=== PATIENT | female | born 1960 | race Caucasian/White ===

== ENCOUNTER 2018-08-11 20:27 | Inpatient (IN) ==
[2018-08-11] MEDS ORDERED: Tetanus/Diphtheria Toxoid Adult Vaccine Inj 0.5 ML Vial IM ONE (22:44)
[2018-08-11] MEDS ORDERED: Ampicillin/Sulbactam Inj 3 GM in Sodium Chloride 0.9% Inj 100 ML IV.SIG ONE (22:44)
--- NOTE | 2018-08-11 22:47 | ED ---
HPI General Chief Complaint: Animal Bite Stated Complaint: Dog Bite Time Seen by Provider: 08/11/18 22:36 Source: patient Mode of arrival: ambulatory Limitations: no limitations History of Present Illness HPI narrative: Patient is a 58 year old female who was bit by a dog today. Reports that she was "loving on a friend's dog"today when all of a sudden the dog attacked her and bit her on the lip. She thinks that the dog is immunized - she will call her friend to find out. Tetanus is not up to date. Incident occurred around 9-10pm tonight. Related Data Home Medications Medication Instructions Recorded Confirmed atorvastatin 5 mg PO EVERY OTHER DAY 03/22/18 08/12/18 Previous Rx's Medication Instructions Recorded amoxicillin-pot clavulanate 1 tab PO Q12H #19 tab 03/22/18 [Augmentin] Allergies Allergy/AdvReac Type Severity Reaction Status Date / Time No Known Allergies Allergy Verified 08/11/18 22:59 Review of Systems ROS: all other systems reviewed are negative [facility] Medical History Medical History High cholesterol (Acute) Hypertension (Acute) Sciatica (Acute) Surgical History Surgical History No history of previous surgery (Acute) Social History Social History Substance History: No History of Abuse Second Hand Smoke Exposure: Yes Smoking Status: Current every day smoker Tobacco Type: Cigarettes How Often Do You Have a Drink Containing Alcohol: 4 or more times a week Immunization History Tetanus Immunization: Unsure Exam Narrative Exam Narrative: GENERAL: Mild distress SKIN: Focused skin assessment warm/dry. Patient with macerated upper lip which crosses the kendall border HEAD: Atraumatic. Normocephalic. EYES: Pupils equal and round. No scleral icterus. No injection or drainage. ENT: No nasal bleeding or discharge. Mucous membranes pink and moist. NECK: Trachea midline. No JVD. CARDIOVASCULAR: Regular rate and rhythm. No murmur appreciated. RESPIRATORY: No accessory muscle use. Clear to auscultation. Breath sounds equal bilaterally. GASTROINTESTINAL: Abdomen soft, non-tender, nondistended. Hepatic and splenic margins not palpable. MUSCULOSKELETAL: No obvious deformities. No clubbing. No cyanosis. No edema. NEUROLOGICAL: Awake and alert. No obvious cranial nerve deficits. Motor grossly within normal limits. Normal speech. PSYCHIATRIC: Appropriate mood and affect; insight and judgment normal. Course Initial Documented Vital Signs Temperature 98 F 08/11/18 20:36 Pulse Rate 116 H 08/11/18 20:36 Respiratory Rate 20 08/11/18 20:36 Blood Pressure 193/120 H 08/11/18 20:36 Pulse Oximetry 97 08/11/18 20:36 Last Documented Vital Signs Temperature 98 F 08/11/18 20:36 Pulse Rate 89 08/12/18 00:38 Respiratory Rate 16 08/12/18 01:23 Blood Pressure 125/90 08/12/18 00:38 Pulse Oximetry 98 08/12/18 01:23 Medical Decision Making MDM Narrative Medical decision making narrative: Patient with bite to the upper lip which occurred around 9- 10 PM tonight. Patient will find out if this dog is immunized as it belongs to her friend. Will update patient's tetanus as well as give her a dose of Unasyn. Patient was discharged home with a prescription for Augmentin. Patient's upper lip is macerated, it does cross the vermilion border, will call plastic surgery for repair of her macerated lip. Patient was evaluated/reassessed by myself via the RMA process Patient is resting comfortably in bed and is getting a dose of Unasyn was consulted on the patient. Dr. Lopez wanted pictures of the laceration. Sent pictures to 's cell phone. states that this will need surgical revision in the OR. Stated to start patient on Unasyn and cover the area with Xeroform/bacitracin. Patient will be admitted to medicine for surgery first thing in the morning. Patient is to be n.p.o. Patient was admitted to Medical Screen Exam Complete: Yes Emergency Medical Condition: Yes Differential Diagnosis Differential Diagnosis: dog bite, facial laceration Lab Data Result diagrams: 08/12/18 00:00 08/12/18 00:00 Lab Results 08/12/18 08/12/18 Range/Units 00:00 00:00 WBC 7.6 (4.0-11.0) th/mm3 RBC 4.43 (4.00-5.30) mil/mm3 Hgb 14.1 (11.6-15.3) gm/dL Hct 41.8 (35.0-46.0) % MCV 94.3 (80.0-100.0) fL MCH 31.8 (27.0-34.0) pg MCHC 33.8 (32.0-36.0) % RDW 14.3 (11.6-17.2) % Plt Count 255 (150-450) th/mm3 MPV 8.4 (7.0-11.0) fL Neut % (Auto) 64.4 (16.0-70.0) % Lymph % (Auto) 28.3 (9.0-44.0) % [place] % (Auto) 5.7 (0.0-8.0) % Eos % (Auto) 0.7 (0.0-4.0) % Baso % (Auto) 0.9 (0.0-2.0) % Neut # (Auto) 4.9 (1.8-7.7) th/mm3 Lymph # (Auto) 2.1 (1.0-4.8) th/mm3 [place] # (Auto) 0.4 (0.0-0.9) th/mm3 Eos # (Auto) 0.1 (0.0-0.4) th/mm3 Baso # (Auto) 0.1 (0.0-0.2) th/mm3 WBC Differential . Differential Comment Auto diff final Sodium 148 H (136-145) meq/L Potassium 3.2 L (3.5-5.1) meq/L Chloride 113 H (98-107) meq/L Carbon Dioxide 24.6 (21.0-32.0) meq/L Anion Gap 10 (5-15) meq/L BUN 12 (7-18) mg/dL Creatinine 0.60 (0.50-1.00) mg/dL Estimated GFR Greater than 89 (>89) mL/min Random Glucose 83 (74-106) mg/dL Calcium 8.1 L (8.5-10.1) mg/dL Total Bilirubin 0.3 (0.2-1.0) mg/dL AST 25 (15-37) U/L ALT 22 (10-53) U/L Alkaline Phosphatase 61 (45-117) U/L Total Protein 7.4 (6.4-8.2) g/dL Albumin 4.0 (3.4-5.0) g/dL Discharge Plan Discharge Disposition Patient Disposition: ED Admit(ED Internal Use Only) Discharge Condition Condition: Stable Discharge Order Discharge Orders: ED Use Only Admit Order (Routine); Ordered 08/12/18 Ordered By: Abimbola Poole Discharge Details Diagnosis: Complicated laceration of lip Physicians Team ED Provider: Coleen Urbano ED Midlevel Provider: Abimbola Poole Primary Care Provider: UNKNOWN, Attending Provider: Edenilson De Oliveira Other Providers: Alfonso Coleman Status ED Status: Admitted Patient
[2018-08-11] MEDS ORDERED: Morphine Inj 4 MG/ML Vial IV.PUSH ONE (22:49)
[2018-08-11] MEDS ORDERED: Sod Chloride 0.9% Inj 1,000 ML IV.SIG SCH (23:00)
[2018-08-12 00:11] LABS: Baso # (Auto) 0.1 th/mm3 (0.0-0.2); Baso % (Auto) 0.9 % (0.0-2.0); Eos # (Auto) 0.1 th/mm3 (0.0-0.4); Eos % (Auto) 0.7 % (0.0-4.0); Hematocrit 41.8 % (35.0-46.0); Hemoglobin 14.1 gm/dL (11.6-15.3); Lymph # (Auto) 2.1 th/mm3 (1.0-4.8); Lymph % (Auto) 28.3 % (9.0-44.0); Mean Corpuscular HGB Conc 33.8 % (32.0-36.0); Mean Corpuscular Hemoglobin 31.8 pg (27.0-34.0); Mean Corpuscular Volume 94.3 fL (80.0-100.0); Mean Platelet Volume 8.4 fL (7.0-11.0); Mono # (Auto) 0.4 th/mm3 (0.0-0.9); Mono % (Auto) 5.7 % (0.0-8.0); Neut # (Auto) 4.9 th/mm3 (1.8-7.7); Neut % (Auto) 64.4 % (16.0-70.0); Platelet Count 255 th/mm3 (150-450); Red Blood Count 4.43 mil/mm3 (4.00-5.30); Red Cell Distribution Width 14.3 % (11.6-17.2); White Blood Count 7.6 th/mm3 (4.0-11.0)
[2018-08-12 00:46] LABS: Alanine Aminotransferase 22 U/L (10-53); Anion Gap 10 meq/L (5-15); Aspartate Aminotransferase 25 U/L (15-37); Blood Urea Nitrogen 12 mg/dL (7-18); Calcium 8.1 mg/dL (8.5-10.1); Carbon Dioxide 24.6 meq/L (21.0-32.0); Chloride 113 meq/L (98-107); Glomerular Filtration Rate Greater Than 89 mL/min (>89); Glucose,Random 83 mg/dL (74-106); Potassium 3.2 meq/L (3.5-5.1); Sodium 148 meq/L (136-145)
[2018-08-12 00:48] LABS: Alkaline Phosphatase 61 U/L (45-117); Total Protein 7.4 g/dL (6.4-8.2)
[2018-08-12] MEDS ORDERED: Sodium Chloride 0.9% 2 ML Flush PRN IV.FLUSH (01:33)
[2018-08-12] MEDS ORDERED: Acetaminophen 325 MG Tablet PO PRN (01:33)
[2018-08-12] MEDS ORDERED: Chlorhexidine Gluconate 2% 1 Pack (2 Cloths) TOPICAL ONE (02:15)
[2018-08-12] MEDS ORDERED: Sodium Chlor 0.9% Inj 500 ML IV.CONT ONE (02:15)
[2018-08-12] MEDS ORDERED: Morphine Inj 4 MG/ML Vial IV.PUSH PRN (03:25)
[2018-08-12] MEDS ORDERED: Sod Chloride 0.9% Inj 1,000 ML IV.CONT SCH (09:38)
--- NOTE | 2018-08-12 09:44 | P.HPIM ---
History of Present Illness Primary Care Physician: Dr. Quentin Giraldo History of Present Illness: Mrs. Lee is a pleasant 58 y/o female with hyperlipidemia and depression/ anxiety who presented to the ED at [facility] on 08/12/18 after being bitten by a friends dog. She reports that yesterday evening, she was at a neighbors house last night and had had a few drinks when she was "loving on a friend's dog," when all of a sudden the dog attacked her and bit her on the lip. She believes that the dog is up to date on its immunizations. Pt was seen in the ER and her laceration on her upper lip was noted to cross the kendall border. She was given Unasyn in the ED. Plastic Surgery was consulted by the ED due to the pts sustained injury and they are recommending surgical intervention today. Pt is very anxious and upset at the time of my examination as she is concerned about any scarring on her face related to this injury. She stopped her Prozac 3 days ago. She had weaned off of it. She is not otherwise taking any medications at home. She has been prescribed cholesterol medications in the past but does not take them due to the muscle cramps she gets while on those medications. She does drink alcohol daily, 2-3 vodka drinks in the evening. Pt quit smoking in but smoked about 1-1.5ppd x 30+ years. 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 This includes certification that hospital inpatient services are reasonable and necessary and in the case of services not specified as inpatient-only under 42 CFR 419.22(n), that they are appropriately provided as inpatient services in accordance to with the 2-midnight benchmark under 43 CFR 412.3(e) Estimated Total Length of Stay (Days): 2 Plans for Post Hospital Care: Home Medications and Allergies Allergies Allergy/AdvReac Type Severity Reaction Status Date / Time No Known Allergies Allergy Verified 08/11/18 22:59 Home Medications Medication Instructions Recorded Confirmed Type atorvastatin 5 mg PO EVERY OTHER DAY 03/22/18 08/12/18 History Active Medications: Active Medications Acetaminophen (Tylenol) 650 mg PO Q4H PRN PRN Reason: PAIN 1-10 Ampicillin Sodium/Sulbactam Sodium 1,500 mg/ Sodium Chloride 100 mls @ 200 mls/ hr IV.SIG Q12H JOHNNY Lactated Ringer's (Lr 1000 Ml Inj) 1,000 mls @ 30 mls/hr IV.CONT .Q24H ONE Stop: 08/13/18 02:14 Sodium Chloride (Ns Inj) 500 mls @ 30 mls/hr IV.CONT .[id number] ONE Stop: 08/12/18 18:54 Sodium Chloride (Ns Inj) 1,000 mls @ 84 mls/hr IV.CONT .[id number] JOHNNY Morphine Sulfate (Morphine Inj) 4 mg IV.PUSH Q6H PRN PRN Reason: PAIN 5-10 Ondansetron HCl (Zofran Inj) 4 mg IV.PUSH Q6H PRN PRN Reason: NAUSEA Sodium Chloride (Ns Flush) 2 ml IV.FLUSH BID JOHNNY Sodium Chloride (Ns Flush) 2 ml IV.FLUSH PRN PRN PRN Reason: FLUSH AFTER USING IV ACCESS Physical Exam Vital signs: Last Vital Signs Temp 97.9 F 08/12/18 08:35 Pulse 87 08/12/18 08:35 Resp 16 08/12/18 08:35 BP 168/95 H 08/12/18 08:35 Pulse Ox 98 08/12/18 08:35 Narrative: GENERAL: NAD, AAOx3 SKIN: Warm and dry. HEENT: Atraumatic. Normocephalic. Pupils equal and round. No scleral icterus. No injection or drainage. No nasal bleeding or discharge. Upper lip is bandaged. NECK: Trachea midline. No JVD. CARDIO: Regular rate and rhythm. RESP: No accessory muscle use. Clear to auscultation. Breath sounds equal bilaterally. ABD: +BS, soft, non-tender, nondistended. Hepatic and splenic margins not palpable. EXT: Extremities without clubbing, cyanosis, or edema. No obvious deformities. NEURO: Awake and alert. No obvious cranial nerve deficits. Motor grossly within normal limits. Five out of 5 muscle strength in the arms and legs. Normal speech. PSYCH: Pt appears very anxious Results Labs CBC & Chem 7: 08/12/18 00:00 08/12/18 00:00 Caprini VTE Risk Assessment Caprini VTE Risk Assessment: No/Low Risk (score <= 1) Caprini Risk Assessment Model: Point Value = 1 Point Value = 2 Point Value = 3 Point Value = 5 Age 41-60 Minor surgery BMI > 25 kg/m2 Swollen legs Varicose veins or History of unexplained or recurrent spontaneous Oral contraceptives or hormone replacement Sepsis (< 1 month) Serious lung disease, including pneumonia (< 1 month) Abnormal pulmonary function Acute myocardial infarction Congestive heart failure (< 1 month) History of inflammatory bowel disease Medical patient at bed rest Age 61-74 Arthroscopic surgery Major open surgery (> 45 min) Laparoscopic surgery (> 45 min) Malignancy Confined to bed (> 72 hours) Immobilizing plaster cast Central venous access Age >= 75 History of VTE Family history of VTE Factor V Leiden Prothrombin [id number] Lupus anticoagulant Anticardiolipin antibodies Elevated serum homocysteine Heparin-induced thrombocytopenia Other congenital or acquired thrombophilia Stroke (< 1 month) Elective arthroplasty Hip, pelvis, or leg fracture Acute spinal cord injury (< 1 month) Prophylaxis Regimen: Total Risk Factor Score Risk Level Prophylaxis Regimen 0-1 Low Early ambulation 2 Moderate Order ONE of the following: *Sequential Compression Device (SCD) *Heparin 5000 units SQ BID 3-4 Higher Order ONE of the following medications: *Heparin 5000 units SQ TID *Enoxaparin/Lovenox 40 mg SQ daily (WT < 150 kg, CrCl > 30 mL/min) *Enoxaparin/Lovenox 30 mg SQ daily (WT < 150 kg, CrCl > 10-29 mL/min) *Enoxaparin/Lovenox 30 mg SQ BID (WT < 150 kg, CrCl > 30 mL/min) AND/OR *Sequential Compression Device (SCD) 5 or more Highest Order ONE of the following medications: *Heparin 5000 units SQ TID (Preferred with Epidurals) *Enoxaparin/Lovenox 40 mg SQ daily (WT < 150 kg, CrCl > 30 mL/min) *Enoxaparin/Lovenox 30 mg SQ daily (WT < 150 kg, CrCl > 10-29 mL/min) *Enoxaparin/Lovenox 30 mg SQ BID (WT < 150 kg, CrCl > 30 mL/min) AND *Sequential Compression Device (SCD) Assessment and Plan Assessment (1) Complicated laceration of lip: Code(s): S01.511A - Laceration without foreign body of lip, initial encounter Status: Acute (2) Anxiety: Code(s): F41.9 - Anxiety disorder, unspecified Status: Chronic (3) Hyperlipidemia: Code(s): E78.5 - Hyperlipidemia, unspecified Status: Chronic (4) Alcohol use: Code(s): Z78.9 - Other specified health status Status: Chronic Plan Complicated lip laceration - Pt is a 58 y/o female with hyperlipidemia and depression/anxiety who presented to the ED at [facility] on 08/12/18 after being bitten by a friends dog. She reports that yesterday evening, she was at a neighbors house last night and had had a few drinks when she was "loving on a friend's dog," when all of a sudden the dog attacked her and bit her on the lip. - Pt was seen in the ER and her laceration on her upper lip was noted to cross the kendall border. - She was given Unasyn in the ED and this was continued. - Plastic Surgery was consulted by the ED due to the pts complicated lip laceration and they are recommending surgical intervention later today. - IVF while NPO - Pain control PRN - Tylenol PRN - Supportive Care - Further recommendations as the case develops Anxiety/Depression - Pt is very anxious - She reportedly weaned off and stopped her Prozac 3 days ago. - Ativan PRN Alcohol abuse - CIWA protocol - Discussed alcohol cessation with the pt and she is agreeable. - She does not feel she needs any help with this in regards to mental health counseling or AA but I did inform her of the programs that [facility] offers. Hyperlipidemia - She has been prescribed cholesterol medications in the past but does not take them due to the muscle cramps she gets while on those medications. - Followup with PCP regarding further management of this. Attending Attestation Patient examined. Assessment and plan formulated with Coleen Barraza PA-C. I agree with the above. upper lip lac secondary to dogbite bandaged. going to OR today with plastics for repair CIWA protocol for etoh overuse. _ (1) Complicated laceration of lip Qualifiers: Encounter type: initial encounter Qualified Code(s): S01.511A - Laceration without foreign body of lip, initial encounter
[2018-08-12] MEDS ORDERED: Haloperidol Inj 5 MG/ML Ampul IV.PUSH PRN (10:51)
[2018-08-12] MEDS ORDERED: LORazepam 1 MG Tablet PO PRN (10:51)
[2018-08-12] MEDS ORDERED: Potassium Chloride 10 MEQ ER Capsule PO SCH (11:00)
[2018-08-12] MEDS: Sodium Chloride 0.9% 2 ML Flush BID IV.FLUSH SCH ×2 (11:22→22:57)
[2018-08-12] MEDS: LORazepam 0.5 MG Tablet PO PRN ×2 (11:25→22:18)
[2018-08-12] MEDS: Ampicillin/Sulbactam Inj 1,500 MG IV.SIG SCH ×4 (11:30→22:20)
[2018-08-12] MEDS ORDERED: Lidocaine PF 1% Inj 5 ML Syringe OTHER ONE (13:35)
[2018-08-12] MEDS ORDERED: Glycopyrrolate Inj 1 MG/5 ML Syringe IV.PUSH ONE (13:35)
[2018-08-12] MEDS ORDERED: Neostigmine Inj 5 MG/5 ML Syringe IV.PUSH ONE (13:35)
[2018-08-12] MEDS ORDERED: Phenylephrine/NS 1000 MCG/10ML Syringe IV.PUSH ONE (13:35)
[2018-08-12] MEDS ORDERED: Bupivacaine/Epinephrine Inj 0.25% 50 ML Vial ONE (13:54)
[2018-08-12] MEDS ORDERED: Methylene Blue Inj 100 MG/10 ML Vial OTHER ONE (14:46)
[2018-08-12] MEDS ORDERED: fentaNYL Citrate Inj 100 MCG/2 ML Ampul ONE ×2 (15:24)
[2018-08-13 05:11] VITALS: BP 128/68; O2SAT 97
[2018-08-13] MEDS: Sodium Chloride 0.9% 2 ML Flush BID IV.FLUSH SCH (09:00)
[2018-08-13 10:37] VITALS: PULSE 85; RESP 16; TEMP 98
[2018-08-13] MEDS: Ampicillin/Sulbactam Inj 1,500 MG IV.SIG SCH ×2 (11:56)
--- NOTE | 2018-08-13 12:37 | P.PNIM ---
Subjective Interval history: Pt underwent surgical repair with Dr. Small on 08/12/18 Pt doing well post-op Tolerating oral intake Anxious for discharge Physical Exam Vital signs: Last Vital Signs Temp 98 F 08/13/18 08:00 Pulse 85 08/13/18 08:00 Resp 16 08/13/18 08:00 BP 128/68 08/13/18 03:30 Pulse Ox 97 08/13/18 03:30 Narrative: GENERAL: NAD, AAOx3 HEENT: Upper lip is bandaged. CARDIO: Regular rate and rhythm. RESP: No accessory muscle use. Clear to auscultation. Breath sounds equal bilaterally. ABD: +BS, soft, non-tender, nondistended. Hepatic and splenic margins not palpable. EXT: Extremities without clubbing, cyanosis, or edema. No obvious deformities. Results Labs CBC & Chem 7: 08/12/18 00:00 08/12/18 00:00 Assessment and Plan Assessment (1) Complicated laceration of lip: Code(s): S01.511A - Laceration without foreign body of lip, initial encounter Status: Acute (2) Anxiety: Code(s): F41.9 - Anxiety disorder, unspecified Status: Chronic (3) Hyperlipidemia: Code(s): E78.5 - Hyperlipidemia, unspecified Status: Chronic (4) Alcohol use: Code(s): Z78.9 - Other specified health status Status: Chronic Plan Complicated lip laceration - Pt is a 58 y/o female with hyperlipidemia and depression/anxiety who presented to the ED at [facility] on 08/12/18 after being bitten by a friends dog. She reports that yesterday evening, she was at a neighbors house last night and had had a few drinks when she was "loving on a friend's dog," when all of a sudden the dog attacked her and bit her on the lip. - Pt was seen in the ER and her laceration on her upper lip was noted to cross the kendall border. - She was given Unasyn in the ED and this was continued. - Plastic Surgery was consulted and pt underwent surgical intervention on - Follow up with Dr Lozano on Tuesday08/15/18 as instructed, - Per surgical request pt is to keep dressing to upper lip in place till seen in the office on [place] - Pt was prescribed Augmentin BID x 7 days and [place] PRN by surgeon for discharge. Anxiety/Depression - She reportedly weaned off and stopped her Prozac 3 days ago. Alcohol abuse - Discussed alcohol cessation with the pt and she is agreeable. - She does not feel she needs any help with this in regards to mental health counseling or AA but I did inform her of the programs that [facility] offers. Hyperlipidemia - She has been prescribed cholesterol medications in the past but does not take them due to the muscle cramps she gets while on those medications. - Followup with PCP regarding further management of this. Attending Attestation Patient examined. Assessment and plan formulated with Coleen Barraza PA-C. I agree with the above. _ (1) Complicated laceration of lip Qualifiers: Encounter type: initial encounter Qualified Code(s): S01.511A - Laceration without foreign body of lip, initial encounter
--- NOTE | 2018-08-13 17:57 | P.CON ---
History of Present Illness Service: Plastic surgery Consult date: 08/12/18 Reason for Consult: Dog bite injury to superior lip Primary Care Provider: UNKNOWN Chief Complaint: Dog bite injury to superior lip History of Present Illness: 58-year-old female who presented to the emergency department following dog bite to her superior lip. Patient reports that following a few drinks, she attempted to "give kisses to her friend's dog" when the dog bit her on the superior lip. She denies abnormal behavior of the dog otherwise. She believes the dog is up-to-date on its immunizations. Patient given Unasyn in the emergency department. Patient endorses severe sharp pain to the upper lip. She endorses some decreased sensation to the upper lip as well. Patient attempted to dress the wound with dry gauze as it was bleeding profusely at the time of injury. Except as noted in the HPI review of systems negative to presenting complaint No known drug allergies Family history noncontributory to presenting complaint Medication list reviewed Past medical/past surgical history Hyperlipidemia Anxiety/Depression Hx of tobacco use Daily alcohol use Chronic back pain Arthritis Bilateral breast augmentation Carpal tunnel release, right wrist Cataract surgery Tubal ligation Social history Over [id number] history of tobacco, the patient reports she quit 4 months ago Positive alcohol use Denies drug use PMFSH - History History Provided By: Patient - Medical History Medical History: Medical History (Last Reviewed 08/12/18 @ 05:29 by Aibmbola Poole) High cholesterol Hypertension Sciatica - Surgical History Surgical History: Surgical History (Last Reviewed 08/12/18 @ 05:29 by Abimbola Poole) No history of previous surgery - Tobacco History Second Hand Smoke Exposure: Yes Tobacco Use In Past 30 Days: Yes Smoking Status: Current every day smoker Tobacco Type: Cigarettes - Alcohol History How Often Do You Have a Drink Containing Alcohol: 4 or more times a week - Substance Use History Substance History: No History of Abuse - Immunization History Tetanus Immunization: Unsure Medications and Allergies Allergies Allergy/AdvReac Type Severity Reaction Status Date / Time No Known Allergies Allergy Verified 08/11/18 22:59 Home Medications Medication Instructions Recorded Confirmed Type atorvastatin 5 mg PO EVERY OTHER DAY 03/22/18 08/12/18 History Physical Exam Vital signs: Vital Signs 08/12/18 19:58 08/13/18 00:07 08/13/18 03:30 Temperature 97.7 F 97.8 F 97.9 F Pulse Rate 87 80 76 Respiratory Rate 19 18 17 Blood Pressure 141/85 H 138/79 128/68 Pulse Oximetry 96 96 97 08/13/18 08:00 Temperature 98 F Pulse Rate 85 Respiratory Rate 16 Blood Pressure Pulse Oximetry Intake & Output 08/12/18 08/13/18 08/13/18 18:59 06:59 18:59 Intake Total 1100 / 1100 100 / 100 100 / 100 Output Total Balance 1095 / 1095 100 / 100 100 / 100 Weight 55.4 kg Intake: IV 100 / 100 100 / 100 100 / 100 Unasyn Inj 1,500 MG In NS Inj 100 / 100 100 / 100 100 / 100 100 ML @ 200 mls/hr IV.SIG Q12H JOHNNY Rx#:[id number] Anesthesia Amount 1000 / 1000 Output: Estimated Blood Loss Other: # Voids 1 3 1 Date of Last Bowel Movement 08/11/18 08/11/18 08/11/18 # Bowel Movements 1 Narrative: No apparent anxiety Moist mucous membranes PERRLA Skin without rash Respirations nonlabored Moves all 4 extremities to command Digits warm well perfused Superior lip with complicated stellate laceration involving the right philtral column, cupids bow, with segmental tissue loss of both inferior right philtral column/cutaneous lip as well as 1.5 cm of vermilion just lateral to cupids josias Wound extends down to and includes orbicularis camilo Lacerations total 4.5 cm Results - Labs CBC & Chem 7: 08/12/18 00:00 08/12/18 00:00 Assessment and Plan - Assessment (1) Complicated laceration of lip Code(s): S01.511A - Laceration without foreign body of lip, initial encounter Status: Acute - Plan 58-year-old female with dog bite injury to right superior lip Risk benefits alternative treatments discussed All questions answered and the patient expressed understanding Patient elected to assume the risks of repair of the above laceration Informed consent obtained (1) Complicated laceration of lip Qualifiers: Encounter type: initial encounter Qualified Code(s): S01.511A - Laceration without foreign body of lip, initial encounter
--- NOTE | 2018-08-13 17:58 | P.PN ---
Subjective Interval history: Patient denies significant pain. She has no new complaints. Dressing is in place. Physical Exam Vital signs: Vital Signs 08/12/18 19:58 08/13/18 00:07 08/13/18 03:30 Temperature 97.7 F 97.8 F 97.9 F Pulse Rate 87 80 76 Respiratory Rate 19 18 17 Blood Pressure 141/85 H 138/79 128/68 Pulse Oximetry 96 96 97 08/13/18 08:00 Temperature 98 F Pulse Rate 85 Respiratory Rate 16 Blood Pressure Pulse Oximetry Intake & Output 08/12/18 08/13/18 08/13/18 18:59 06:59 18:59 Intake Total 1100 / 1100 100 / 100 100 / 100 Output Total 5 / 5 Balance 1095 / 1095 100 / 100 100 / 100 Weight 55.4 kg Intake: IV 100 / 100 100 / 100 100 / 100 Unasyn Inj 1,500 MG In NS Inj 100 / 100 100 / 100 100 / 100 100 ML @ 200 mls/hr IV.SIG Q12H JOHNNY Rx#:[id number] Anesthesia Amount 1000 / 1000 Output: Estimated Blood Loss 5 / 5 Other: # Voids 1 3 1 Date of Last Bowel Movement 08/11/18 08/11/18 08/11/18 # Bowel Movements 1 Narrative: Right superior lip dressing removed All incisions well apposed All edges appear viable No signs of infection Results - Labs CBC & Chem 7: 08/12/18 00:00 08/12/18 00:00 Assessment and Plan - Assessment (1) Complicated laceration of lip Code(s): S01.511A - Laceration without foreign body of lip, initial encounter Status: Acute - Plan 58-year-old female status post 08/12/2018 repair of dog bite injury to right superior lip Doing well Consider discharge with instructions to apply mupirocin ointment/Xeroform gauze/ dry gauze to incisions 3 times daily Patient should return to my clinic this week, call for appointment Please also discharged on Augmentin (1) Complicated laceration of lip Qualifiers: Encounter type: initial encounter Qualified Code(s): S01.511A - Laceration without foreign body of lip, initial encounter
--- NOTE | 2018-08-13 18:08 | P.OP ---
- Preoperative Diagnosis (1) Complicated laceration of lip (2) Dog bite - Postoperative Diagnosis (1) Dog bite (2) Complicated laceration of lip Date of procedure: 08/12/18 Procedure: Adjacent tissue rearrangement of right superior lip wound due to dog bite (02159 ) Anesthesia: GETA Surgeon: Alfonso Coleman MD Operation and Findings: 58-year-old female who presented status post dog bite injury to right superior lip, requesting closure. Risk benefits alternative treatments discussed. All questions answered and the patient expressed understanding. Patient elected to assume the risks of wound debridement and closure of the above wound. Informed consent obtained. Surgical site was marked in the preoperative holding bay. The patient was already on antibiotics. Patient was taken to the operating room and all pressure points were padded. A surgical timeout was performed. SCDs were in place at the time of induction. After the smooth induction of general anesthesia, the red white junction was "tattooed" using a 25-gauge hypodermic needle and methylene blue. Following this the surgical site was instilled with quarter percent Marcaine with epinephrine. The surgical site was prepped and draped in the usual sterile fashion. The wound measured 3 cm in diameter and included the lower half of the right philtral column and 1.5 cm of vermilion just lateral to cupids bow. The edges of the wound were freshened and multiple areas of nonviable/necrotic tissue were debrided sharply. Following this the cutaneous lip was bluntly undermined just superficial to orbicularis camilo both medially and laterally. Following this the wet vermilion was undermined, leaving underlying orbicularis camilo intact until the wet vermilion was able to be advanced to the area of the previous white roll without undue tension. Meticulous hemostasis was ensured using bipolar cautery. An "A to T"adjacent tissue rearrangement was planned. The T point of the cutaneous lip was "set" using interrupted 5-0 Vicryl. Following this the superior aspect of the laceration was extended for 3 mm further in order to excise the standing cone deformity. Following this multiple further 5-0 Vicryl were used to complete the cutaneous lip closure. The wet vermilion was then advanced superiorly and sutured in place with multiple interrupted 5-0 chromic and fast absorbing gut suture in a horizontal mattress and simple fashion. Medial and lateral standing cone deformities of the vermilion were excised. The surgical site was cleaned and dressed with mupirocin ointment Xeroform gauze dry gauze and Tegaderm. All needle sponge and instrument counts were correct x2. The patient was awoken from anesthesia and arrived stable and doing well to the PACU.
== END 2018-08-13 12:46 | disposition home or self-care (01) | DRG 138 ==
LOC: NEPB 20:27 → NEDA 08-12 00:52 → NEPB 08-12 01:50 → N06 08-12 02:00
PROVIDERS: ADMIT Hospitalist; ATTEND Hospitalist
CPT/HCPCS: 80053; 85025; 90471; 90702; 90714; 90718; 90765; 90775; 96365; 96375; 99285; J0295; J1100; J2250; J2270; J2370; J2405; J2704; J2710; J3010; J7030; J7120